=== PATIENT | female | born 1985 ===

== ENCOUNTER 2018-06-14 23:24 | Emergency (ER) | payer BC | END 2018-06-15 00:25 | disposition home or self-care (01) | LOC: ED 23:24 ==

== ENCOUNTER 2018-07-10 02:12 | Emergency (ER) | payer BC ==
[2018-07-10] MEDS ORDERED: APAP/OXYCODONE 1 EACH TABLET PO ONE (02:19)
[2018-07-10] MEDS ORDERED: AMOXICILLIN 250 MG CAP PO ONE (02:19)
[2018-07-10] MEDS ORDERED: KETOROLAC TROMETHAMINE 30 MG/ML SOL IM ONE (02:24)
[2018-07-10] MEDS ORDERED: AMOXICILLIN(FRIDGE) 125/5 ML BOTTLE PO ONE (02:26)
[2018-07-10] MEDS ORDERED: APAP/OXYCODONE 1 EACH TABLET ONE (02:26)
[2018-07-10] MEDS ORDERED: AMOXICILLIN(FRIDGE) 125/5 ML BOTTLE ONE (02:28)
[2018-07-10] MEDS ORDERED: KETOROLAC TROMETHAMINE 30 MG/ML SOL ONE (02:28)
[2018-07-10 02:58] VITALS: BP 123/85; PULSE 77; RESP 16; TEMP 96.8; O2SAT 96
== END 2018-07-10 02:40 | disposition home or self-care (01) ==
LOC: ED 02:12
DX: K04.7 Periapical abscess without sinus (principal)
CPT/HCPCS: 96372; 99282; J1885; A9270-GY